=== PATIENT | female | born 1980 | race Hispanic/Latino ===

== ENCOUNTER 2022-12-17 19:30 | Emergency (ER) | payer BC, SELFPAY ==
[2022-12-17] MEDS ORDERED: hydrOXYzine 25 MG TAB ONE (20:33)
[2022-12-17] MEDS ORDERED: predniSONE 20 MG TAB ONE (20:33)
== END 2022-12-17 20:49 | disposition home or self-care (01) ==
LOC: ERS 19:30
DX: L40.9 Psoriasis, unspecified (principal); Z87.891 Personal history of nicotine dependence
CPT/HCPCS: 99283; J7512